=== PATIENT | female | born 1980 | race Caucasian/White ===

== ENCOUNTER 2019-12-04 06:29 | Emergency (ER) | payer OTHER ==
[~2019-12-04] VITALS: Ht 162.6 cm; Wt 68.2 kg
[2019-12-04 06:47] VITALS: BP 111/78
[2019-12-04 07:24] LABS: COLLECTION METHOD CLEAN CATCH
[2019-12-04 07:36] LABS: BASO % 0.6 % (0.0-2.0); EOS # 0.1 (0.0-0.7); GRAN # 5.7 (1.4-6.5); GRAN % 78.6 % (42.2-75.2); HEMOGLOBIN 12.4 g/dl (12.5-16.0); LYMPH % 13.4 % (20.0-51.0); MEAN CELL VOLUME 94 fl (80.0-100.0); MEAN CORPUSCULAR HEMOGLOBIN 33 pg (27.0-31.0); MEAN CORPUSCULAR HGB CONC 35 g/dl (33.0-37.0); MEAN PLATELET VOLUME 9.5 fl (7.4-10.4); MONO # 0.4 (0.1-0.6); MONO % 6.1 % (1.7-9.3); PLATELET COUNT 191 K/mm3 (130-400); RED BLOOD COUNT 3.81 M/mm3 (4.10-5.30); REDCELL DISTRIBUTION WIDTH-CV 12.2 % (11.5-14.5)
[2019-12-04 07:41] LABS: PH 9 (5-8); SQUAMOUS EPITHELIAL 0-2 /hpf; URINE APPEARANCE Clear; URINE BACTERIA None Seen /hpf; URINE BILIRUBIN Negative (NEGATIVE); URINE BLOOD Negative (NEGATIVE); URINE COLOR Colorless; URINE GLUCOSE Negative (NEGATIVE); URINE KETONE Negative (NEGATIVE); URINE LEUKOCYTE ESTERASE Negative (NEGATIVE); URINE NITRATE Negative (NEGATIVE); URINE PROTEIN(semi-quant) Negative (NEGATIVE); URINE RBC 0-2 /hpf; URINE UROBILINOGEN Negative (NEGATIVE)
[2019-12-04 07:51] LABS: HEMATOCRIT 35.7 % (37.0-47.0)
[2019-12-04 07:52] LABS: ALBUMIN 4.1 gm/dL (3.5-5.0); BILIRUBIN,TOTAL 0.5 mg/dL (0.0-1.0); CALCIUM 8.6 mg/dL (8.4-10.2); CREATININE, serum 0.56 (0.52-1.25); POTASSIUM 4.1 mmol/L (3.4-5.0); TOTAL PROTEIN 6.7 gm/dL (6.4-8.2)
[2019-12-04] MEDS ORDERED: ZYRTEC 10MG10 MG PO (08:47)
[2019-12-04] MEDS ORDERED: PROBIOTIC-MAJOR PO (08:47)
[2019-12-04 10:10] VITALS: PULSE 70
== END 2019-12-04 10:10 | disposition home or self-care (01) ==
LOC: COL.ER 06:29
PROVIDERS: Emergency Medicine
DX: R19.7 Diarrhea, unspecified (principal); Z32.02 Encounter for pregnancy test, result negative; Z88.0 Allergy status to penicillin; Z88.1 Allergy status to other antibiotic agents; Z88.2 Allergy status to sulfonamides
CPT/HCPCS: C9113; J7030